=== PATIENT | male | born 1965 | race African-American/Black ===

== ENCOUNTER 2017-10-12 21:05 | Emergency (ER) | payer OTHER ==
[~2017-10-12] VITALS: Ht 165.1 cm; Wt 160.0 kg
[~2017-10-12 21:05] MED LIST: LOSA100T3 PO; VERA240T PO; VIC
[2017-10-13] MEDS ORDERED: ONDANSETRON HCL 4MG/2ML VIAL IV STA (03:32)
[2017-10-13] MEDS ORDERED: SODIUM CHLORIDE 0.9% 1,000 ML IV ONE (03:32)
[2017-10-13] MEDS ORDERED: KETOROLAC 30MG/ML VIAL IV STA (03:32)
[2017-10-13 03:54] LABS: HEMATOCRIT. 48.9 % (42.0-52.0); HEMOGLOBIN. 16.1 g/dL (14.0-18.0); MEAN CORPUSCULAR HEMOGLOBIN 30.5 pg (28.0-32.0); MEAN CORPUSCULAR VOLUME 92.7 fL (80.0-94.0); MEAN PLATELET VOLUME 7.5 fl (7.4-10.4); PLATELET 250 x1000/uL (130-400); RED BLOOD CELL COUNT 5.28 mill/uL (4.7-6.1); RED CELL DISTRIBUTION WIDTH 14.8 % (11.6-14.6)
[2017-10-13 04:00] LABS: INR 1.1; PROTHROMBIN TIME 11.1 sec (9.4-11.6)
[2017-10-13 04:07] LABS: CARBON DIOXIDE 33 mEq/L (21-32); CHLORIDE 103 mEq/L (98-107)
[2017-10-13 04:31] LABS: CLARITY URINE CLEAR (CLEAR); COLOR URINE DARK YELLOW (YELLOW); KETONES URINE NEGATIVE (NEGATIVE); LEUKOCYTE ESTERASE URINE NEGATIVE (NEGATIVE); NITRITE URINE NEGATIVE (NEGATIVE); OCCULT BLOOD URINE NEGATIVE (NEGATIVE); PH URINE 6.5 (4.5-8.0); PROTEIN URINE NEGATIVE (NEGATIVE); SPECIFIC GRAVITY URINE 1.031 (1.005-1.030); UROBILINOGEN URINE 0.2 E.U./dL (0.2-1.0)
[2017-10-13 06:27] VITALS: BP 134/90
[2017-10-13 08:42] LABS: PLATELET ESTIMATE NORMAL
== END 2017-10-13 06:33 | disposition home or self-care (01) ==
LOC: ER 21:27
DX: M79.1 Myalgia (principal); R19.7 Diarrhea, unspecified; I10 Essential (primary) hypertension; Z98.890 Other specified postprocedural states; Z98.84 Bariatric surgery status
CPT/HCPCS: 36415; 80053; 81003; 85025; 85610; 93005; 96361; 96374; 96375; 99285; J1885; J2405; J7030; Z7610